=== PATIENT | male | born 1945 | race Caucasian/White ===

== ENCOUNTER → 2017-11-29 10:04 | Outpatient (CLI) | payer OTHER, MEDICAID, SELFPAY ==
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
== END ==
PROVIDERS: PCP Internal Medicine; Visit Provider Internal Medicine
DX: L89.894 Pressure ulcer of other site, stage 4 (principal); G82.50 Quadriplegia, unspecified; B95.7 Other staphylococcus as the cause of diseases classified elsewhere
CPT/HCPCS: 11043; 87070; 87075; 87077; 87186; 87205

== ENCOUNTER → 2017-12-06 11:02 | Outpatient (CLI) | payer OTHER, MEDICAID, SELFPAY | PROVIDERS: PCP Internal Medicine; Visit Provider Internal Medicine | DX: B95.2 Enterococcus as the cause of diseases classified elsewhere (principal); L89.894 Pressure ulcer of other site, stage 4 | CPT/HCPCS: 11042 ==

== ENCOUNTER → 2017-12-13 10:28 | Outpatient (CLI) | payer OTHER, MEDICAID, SELFPAY ==
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
== END ==
PROVIDERS: PCP Internal Medicine; Visit Provider Internal Medicine
DX: L89.313 Pressure ulcer of right buttock, stage 3 (principal); L89.894 Pressure ulcer of other site, stage 4; B95.2 Enterococcus as the cause of diseases classified elsewhere; G82.50 Quadriplegia, unspecified
CPT/HCPCS: 11042

== ENCOUNTER → 2017-12-20 10:03 | Outpatient (CLI) | payer OTHER, MEDICAID, SELFPAY | PROVIDERS: PCP Internal Medicine; Visit Provider Internal Medicine | DX: L89.43 Pressure ulcer of contiguous site of back, buttock and hip, stage 3 (principal); L89.894 Pressure ulcer of other site, stage 4 | CPT/HCPCS: 11042 ==

== ENCOUNTER → 2017-12-27 10:08 | Outpatient (CLI) | payer OTHER, MEDICAID, SELFPAY ==
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
== END ==
PROVIDERS: PCP Internal Medicine; Visit Provider Internal Medicine
DX: L89.894 Pressure ulcer of other site, stage 4 (principal)
CPT/HCPCS: 11042

== ENCOUNTER → 2018-01-03 11:38 | Outpatient (CLI) | payer OTHER, MEDICAID, SELFPAY | PROVIDERS: PCP Internal Medicine; Visit Provider Internal Medicine | DX: L89.894 Pressure ulcer of other site, stage 4 (principal) | CPT/HCPCS: 11042 ==

== ENCOUNTER → 2018-01-10 09:23 | Outpatient (CLI) | payer OTHER, MEDICAID, SELFPAY ==
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
== END ==
PROVIDERS: PCP Internal Medicine; Visit Provider Internal Medicine
DX: G82.50 Quadriplegia, unspecified (principal); M62.84 Sarcopenia; L89.894 Pressure ulcer of other site, stage 4
CPT/HCPCS: 11042

== ENCOUNTER → 2018-01-18 09:32 | Outpatient (CLI) | payer OTHER, MEDICAID, SELFPAY ==
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
== END ==
PROVIDERS: Family Provider Internal Medicine; PCP Internal Medicine; Visit Provider Internal Medicine
DX: L89.894 Pressure ulcer of other site, stage 4 (principal)
CPT/HCPCS: 11042

== ENCOUNTER → 2018-01-31 10:38 | Outpatient (CLI) | payer OTHER, MEDICAID, SELFPAY ==
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
== END ==
PROVIDERS: Family Provider Internal Medicine; PCP Internal Medicine; Visit Provider Internal Medicine
DX: L89.894 Pressure ulcer of other site, stage 4 (principal)
CPT/HCPCS: 11042

== ENCOUNTER → 2018-02-14 09:24 | Outpatient (CLI) | payer OTHER, MEDICAID, SELFPAY ==
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
== END ==
PROVIDERS: Family Provider Internal Medicine; PCP Internal Medicine; Visit Provider Internal Medicine
DX: L92.9 Granulomatous disorder of the skin and subcutaneous tissue, unspecified (principal); L89.894 Pressure ulcer of other site, stage 4
CPT/HCPCS: 17250

== ENCOUNTER → 2018-03-02 09:16 | Outpatient (CLI) | payer OTHER, MEDICAID, SELFPAY ==
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
== END ==
PROVIDERS: Family Provider Internal Medicine; PCP Internal Medicine; Visit Provider Internal Medicine
DX: L89.894 Pressure ulcer of other site, stage 4 (principal); G82.50 Quadriplegia, unspecified
CPT/HCPCS: 99212

== ENCOUNTER → 2018-03-16 09:37 | Outpatient (CLI) | payer OTHER, MEDICAID, SELFPAY ==
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
== END ==
PROVIDERS: Family Provider Internal Medicine; PCP Internal Medicine; Visit Provider Internal Medicine
DX: G82.50 Quadriplegia, unspecified (principal); S51.802A Unspecified open wound of left forearm, initial encounter; S51.801A Unspecified open wound of right forearm, initial encounter; Z48.817 Encounter for surgical aftercare following surgery on the skin and subcutaneous tissue; W05.0XXA Fall from non-moving wheelchair, initial encounter
CPT/HCPCS: 99213